=== PATIENT | male | born 1995 | race Caucasian/White ===

== ENCOUNTER 2019-06-21 12:21 | Emergency (ER) | payer OTHER, SELFPAY ==
[2019-06-21] VITALS (8 sets, daily range): BP systolic 127–175; BP diastolic 69–104; PULSE 100–135; RESP 18; TEMP 36.7–36.9; O2SAT 97–100; BMI 23.5
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
[2019-06-21 13:03] LABS: Basophils # 0.1 K/mm3 (0-0.2); Basophils % 0.4 % (0.1-2.0); Eosinophils # 0.1 K/mm3 (0.0-0.4); Eosinophils % 1.2 % (0.1-12.0); Hematocrit 47.4 % (42.0-52.0); Hemoglobin 16.1 g/dL (14.1-18.0); Lymphocytes % 26.6 % (10-50); Mean Corpuscular Hemoglobin 29.8 pg (27.0-31.2); Mean Corpuscular Volume 87.7 fl (80-94); Mean Platelet Volume 8.6 fl (7.4-10.4); Monocytes # 0.5 K/mm3 (0.1-1.0); Monocytes % 4.6 % (1.7-9.3); Neutrophils # 7.6 K/mm3 (1.8-7.8); Neutrophils % 67.2 % (37.0-80.0); Platelet Count 343 K/mm3 (142-424); Red Blood Count 5.41 M/mm3 (4.60-6.20); White Blood Count 11.3 K/mm3 (4.8-10.8)
[2019-06-21 13:12] LABS: Anion Gap 19.5 mEq/L (5-15); Blood Urea Nitrogen 14 mg/dL (7-18); Carbon Dioxide 21 mmol/L (21.0-32.0); Chloride 104 mmol/L (98-107); Creatinine Clearance Estimated 115 mL/min (50-200); Creatinine,Serum 0.97 mg/dL (0.70-1.30); Estimated Glomerular Filt Rate 97 ml/min (>60); GFR (African American) 117 ML/MIN (>60); Glucose 140 mg/dL (74-106); Potassium 3.5 mmoL/L (3.5-5.1); Sodium 141 mmol/L (136-145)
--- NOTE | 2019-06-21 13:45 | PC.NURSE ---
Dr. Pruett looking at xrays and will be down to see the pt.
--- NOTE | 2019-06-21 14:49 | PC.NURSE ---
DR JUAREZ AT BEDSIDE
--- NOTE | 2019-06-21 14:55 | PC.NURSE ---
Dr Pruett at bedside reducing arm.
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
== END 2019-06-21 16:30 | disposition home or self-care (01) ==
PROVIDERS: Emergency Provider Emergency Medicine
DX: S42.402A Unspecified fracture of lower end of left humerus, initial encounter for closed fracture (principal); V00.831A Fall from motorized mobility scooter, initial encounter; Y92.89 Other specified places as the place of occurrence of the external cause
CPT/HCPCS: 70450; 71045; 71100; 72125; 72170; 73060; 73070; 80048; 85025; 96374; 96375; 99284

== ENCOUNTER → 2019-07-05 12:40 | Outpatient (CLI) | payer OTHER, SELFPAY ==
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
== END ==
PROVIDERS: Visit Provider Orthopaedic Surgery
DX: S42.402A Unspecified fracture of lower end of left humerus, initial encounter for closed fracture (principal)
CPT/HCPCS: 73060

== ENCOUNTER → 2019-07-26 08:50 | Outpatient (CLI) | payer OTHER, SELFPAY ==
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
== END ==
PROVIDERS: Visit Provider Orthopaedic Surgery
DX: S42.402A Unspecified fracture of lower end of left humerus, initial encounter for closed fracture (principal)
CPT/HCPCS: 73060

== ENCOUNTER → 2019-08-23 08:29 | Outpatient (CLI) | payer OTHER, SELFPAY ==
--- NOTE | 2019-08-23 08:33 | XR_ITS ---
PROCEDURE: XR ELBOW LT MIN 3V CLINICAL INDICATION: ORIF l distal humerus fracture Follow-up ORIF COMPARISON: XR ELBOW LT 2V from 06/21/2019 XR HUMERUS LT from 07/26/2019 FINDINGS: Good alignment status post ORIF distal humerus with both the medial and lateral bone plate along the posterior aspect of the humerus. There is good alignment. The fracture lines are still visible. The elbow joint has an unremarkable appearance IMPRESSION: No change status post ORIF distal humerus with good alignment and incomplete bony union Dictated by: Tong Sherman MD 08/23/2019 13:08 Electronically signed by Tong Sherman MD in [place] 08/23/2019 13:08
== END ==
PROVIDERS: Visit Provider Orthopaedic Surgery
DX: S42.402A Unspecified fracture of lower end of left humerus, initial encounter for closed fracture (principal)
CPT/HCPCS: 73080

== ENCOUNTER 2019-08-23 10:00 | Outpatient (RCR) | payer OTHER, SELFPAY ==
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
--- NOTE | 2019-08-07 15:17 | HMH.RHREAS ---
Rehab Reassessment Rehab OP Re-assessment Start: 08/07/19 15:11 Freq: Status: Active Protocol: Document 08/07/19 15:12 RAMESH (Rec: 08/07/19 15:17 RAMESH [id number]) Electronically Signed By Pedro Cates, PT 08/07/19 15:12 Rehab Re-assessment Subjective Subjective PT REPORTS 0-4/10 L ELBOW PAIN ON VAS, DEPENDENT ON ACTIVITY LEVEL, AND FEELS 78% BETTER OVERALL SINCE I EVAL. Objective Objective Notes AROM: L ELBOW FLX 12-140 PROM: L ELBOW FLX 5-145 MMT: L ELBOW FLX 4/5, EXT 4/5, PRO 4+/5, SUP 4+/5, WRIST EXT 4+/5, WRIST FLX 4+/5, FINGER ABD 5/5, EPL 5/5 TTP: L ELBOW OLECRANON 06/29, MEDIAL EPICONDYLE 06/29 Assessment Progress Assessment Progressing as Expected Assessment Notes PT W/IMPROVED ROM, STRENGTH, AND TTP Patient goals met STG'S 09/29 LTG'S 08/05 Goals Not Met STG'S 08/01, LTG'S 02/02 Plan Plan PT TO CONT. W/SKILLED P.T. TO MAKE FURTHER IMPROVEMENTS IN L ELBOW AROM/PROM, STRENGTH, AND TTP TO ALLOW FOR OPTIMAL FUNCTION Frequency of Therapy 2-3X/WK Duration of therapy 4-6 WKS Time and Billing Re-Eval Time 15 Re-Eval Billing Units 1 PHYSICIAN CERTIFICATION: I certify the specified therapy services for [facility] are required, authorized, and reviewed every 30 days.
== END 2019-08-23 10:05 | disposition home or self-care (01) ==
LOC: PT 10:00
PROVIDERS: PCP Orthopaedic Surgery; Visit Provider Orthopaedic Surgery
DX: S42.402D Unspecified fracture of lower end of left humerus, subsequent encounter for fracture with routine healing (principal)
CPT/HCPCS: 97010; 97014; 97110; 97140; 97163; 97164; 97760; G0283

== ENCOUNTER → 2019-09-20 12:48 | Outpatient (CLI) | payer OTHER, SELFPAY ==
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
== END ==
PROVIDERS: Visit Provider Orthopaedic Surgery
DX: S42.402A Unspecified fracture of lower end of left humerus, initial encounter for closed fracture (principal)
CPT/HCPCS: 73080

== ENCOUNTER → 2019-10-17 10:38 | Outpatient (CLI) | payer OTHER, SELFPAY ==
--- NOTE | 2019-10-17 10:48 | XR_ITS ---
PROCEDURE: XR ELBOW LT 2V CLINICAL INDICATION: fx Follow-up fracture, follow-up ORIF COMPARISON: XR ELBOW LT 2V from 06/21/2019 XR ELBOW LT MIN 3V from 08/23/2019 XR ELBOW LT MIN 3V from 09/20/2019 FINDINGS: Medial lateral bone plates are once again noted along the distal humerus. There is good alignment with no significant displacement. The fracture line anteriorly remains ununited. The joint spaces are well-preserved. No significant degenerative/arthritic changes. No erosive changes evident. Other findings:None. IMPRESSION: Good alignment status post ORIF. The distal fracture of the humerus is ununited at least anteriorly with the posterior aspect of the fracture line obscured by the overlying bone plates Dictated by: Tong Sherman MD 10/17/2019 12:43 Electronically signed by Tong Sherman MD in [facility] 10/17/2019 12:43
== END ==
PROVIDERS: Visit Provider Orthopaedic Surgery
DX: S42.402A Unspecified fracture of lower end of left humerus, initial encounter for closed fracture (principal)
CPT/HCPCS: 73070

== ENCOUNTER → 2019-11-29 10:01 | Outpatient (CLI) | payer OTHER, SELFPAY ==
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
== END ==
PROVIDERS: Visit Provider Orthopaedic Surgery
DX: S42.402A Unspecified fracture of lower end of left humerus, initial encounter for closed fracture (principal)
CPT/HCPCS: 73080